=== PATIENT | female | born 1990 | race Caucasian/White ===

== ENCOUNTER → 2017-05-16 | Outpatient (CLI) | payer MEDICAID ==
[~2017-05-16] MED LIST: LORTAB 5/500 501 TAB PO; MACROBID 1100 MG/CAP; MONONESSA 35 MC1 TA1 PO; NO HOME MEDICATIONS; PRENATAL1 TA2; [UNRECOGNIZED DRUG - OTHER]
== END ==
LOC: COL.RAD 10:39
DX: O99.89 Other specified diseases and conditions complicating pregnancy, childbirth and the puerperium (principal); N13.30 Unspecified hydronephrosis; M54.5 Low back pain; R10.31 Right lower quadrant pain; R10.32 Left lower quadrant pain; Z3A.26 26 weeks gestation of pregnancy; Z87.442 Personal history of urinary calculi
CPT/HCPCS: Q9967

== ENCOUNTER → 2022-08-09 | Outpatient (CLI) | payer OTHER | LOC: MHCPAIN 10:51 | DX: M50.221 Other cervical disc displacement at C4-C5 level (principal); M50.123 Cervical disc disorder at C6-C7 level with radiculopathy; M54.12 Radiculopathy, cervical region | CPT/HCPCS: G0463 ==